=== PATIENT | male | born 1935 | race Caucasian/White ===

== ENCOUNTER → 2017-07-10 | Outpatient (CLI) | payer MEDICARE | END | disposition home or self-care (01) | LOC: CARD 12:46 | DX: I42.9 Cardiomyopathy, unspecified (principal); Z79.899 Other long term (current) drug therapy ==

== ENCOUNTER → 2019-10-24 | Outpatient (CLI) | payer OTHER | END | disposition home or self-care (01) | LOC: CT 10:20 | DX: K57.90 Diverticulosis of intestine, part unspecified, without perforation or abscess without bleeding (principal) ==

== ENCOUNTER 2021-10-20 16:28 | Inpatient (IN) | payer OTHER ==
[~2021-10-20] VITALS: Ht 190.5 cm; Wt 75.9 kg
[2021-10-20 16:34] VITALS: BP 139/70
[2021-10-20 18:42] VITALS: BP 126/69
[2021-10-20 19:56] LABS: BASO % 0.2 % (0.0-1.0); EOS # 0.1 10*3/uL (0.0-0.4); EOS % 0.7 % (1.0-4.0); HEMATOCRIT 40.7 % (42.0-52.0); LYMPH # 1.3 10*3/uL (1.3-4.4); LYMPH % 15.4 % (27.0-41.0); MEAN CELL VOLUME 98.5 fl (80.0-94.0); MEAN CORPUSCULAR HGB 33.4 pg (27.0-31.0); MEAN CORPUSCULAR HGB CONC 33.9 g/dl (33.0-37.0); MEAN PLATELET VOLUME 8.1 fl (9.6-12.3); MONO # 0.6 10*3/uL (0.1-1.0); MONO % 6.8 % (3.0-9.0); NEUT # 6.6 10*3/uL (2.3-7.9); NEUT % 76.7 % (47.0-73.0); PLATELET COUNT AUTOMATED 117 10*3/uL (130-400); RED BLOOD COUNT 4.13 10*6/uL (4.50-5.90); RED CELL DISTRI WIDTH 13.6 % (0-14.5); WHITE BLOOD COUNT 8.6 10*3/uL (4.8-10.8)
[2021-10-20 20:07] LABS: ACT PARTIAL THROMBO TIME 40.6 SECONDS (20.0-32.1); INTERNATIONAL NORM RATIO 2.3 (2.0-3.5)
[2021-10-20 20:10] LABS: ALBUMIN 3.9 gm/dl (3.1-4.5); CREATININE 1.8 mg/dL (0.70-1.30); POTASSIUM 4.1 mmol/L (3.5-5.1); TOTAL PROTEIN 7.8 gm/dL (6.4-8.2)
[2021-10-20 20:23] VITALS: BP 131/60
[2021-10-20] MEDS ORDERED: MIRTAZAPINE7.5 MG PO (21:36)
[2021-10-20] MEDS ORDERED: FUROSEMIDE40 MG PO (21:38)
[2021-10-20] MEDS ORDERED: METOPROLOL SUCC25 M2 PO (21:38)
[2021-10-20] MEDS ORDERED: WARFARIN SOD2 MG PO (21:39)
[2021-10-20] MEDS ORDERED: ALLOPURINOL100 MG PO (21:39)
[2021-10-20] MEDS ORDERED: AMLODIPINE BES2.5 MG PO (21:39)
[2021-10-20] MEDS ORDERED: OMEPRAZOLE MAGN20 MG PO (21:40)
[2021-10-20] MEDS ORDERED: ESCITALOPRAM OX20 MG PO (21:40)
[2021-10-20] MEDS ORDERED: ADULT ASPIRIN R81 MG PO (21:42)
[2021-10-20 23:25] VITALS: BP 114/47
[2021-10-21] VITALS: BP 105/51
[2021-10-21] MEDS ORDERED: ZINC50 M4 PO (00:40)
[2021-10-21] MEDS ORDERED: PRALUENT P150 MG/1 M SQ (00:41)
[2021-10-21] MEDS ORDERED: VITAMIN B121000 MC1 PO (01:04)
[2021-10-21] MEDS ORDERED: XALATAN 0.005%2.5 ML INTRAOC (01:06)
[2021-10-21 08:00] VITALS: BP 134/65
[2021-10-21 08:15] LABS: BASO % 0.3 % (0.0-1.0); EOS # 0.1 10*3/uL (0.0-0.4); EOS % 1.7 % (1.0-4.0); HEMATOCRIT 37.8 % (42.0-52.0); LYMPH # 1.1 10*3/uL (1.3-4.4); LYMPH % 15.1 % (27.0-41.0); MEAN CELL VOLUME 97.7 fl (80.0-94.0); MEAN CORPUSCULAR HGB 33.9 pg (27.0-31.0); MEAN CORPUSCULAR HGB CONC 34.7 g/dl (33.0-37.0); MEAN PLATELET VOLUME 8.6 fl (9.6-12.3); MONO # 0.6 10*3/uL (0.1-1.0); NEUT # 5.2 10*3/uL (2.3-7.9); NEUT % 73.6 % (47.0-73.0); PLATELET COUNT AUTOMATED 110 10*3/uL (130-400); RED BLOOD COUNT 3.87 10*6/uL (4.50-5.90); RED CELL DISTRI WIDTH 13.6 % (0-14.5)
[2021-10-21 08:29] LABS: ALBUMIN 3.5 gm/dl (3.1-4.5); CREATININE 1.64 mg/dL (0.70-1.30)
[2021-10-21 08:31] LABS: TOTAL PROTEIN 7.2 gm/dL (6.4-8.2)
[2021-10-21 12:00] VITALS: BP 117/53
[2021-10-21 16:00] VITALS: BP 125/57
[2021-10-21 20:30] VITALS: BP 127/73
[2021-10-22] VITALS: BP 132/57
[2021-10-22 06:55] LABS: HEMATOCRIT 39.7 % (42.0-52.0); MEAN CELL VOLUME 95.2 fl (80.0-94.0); MEAN CORPUSCULAR HGB 33.8 pg (27.0-31.0); MEAN CORPUSCULAR HGB CONC 35.5 g/dl (33.0-37.0); MEAN PLATELET VOLUME 8.6 fl (9.6-12.3); PLATELET COUNT AUTOMATED 132 10*3/uL (130-400); RED BLOOD COUNT 4.17 10*6/uL (4.50-5.90); RED CELL DISTRI WIDTH 13.2 % (0-14.5); WHITE BLOOD COUNT 7.5 10*3/uL (4.8-10.8)
[2021-10-22 07:17] LABS: ALBUMIN 3.7 gm/dl (3.1-4.5); CREATININE 1.68 mg/dL (0.70-1.30); POTASSIUM 4.1 mmol/L (3.5-5.1); TOTAL PROTEIN 7.7 gm/dL (6.4-8.2)
[2021-10-22 07:29] LABS: ATYPICAL LYMPHS 1 % (0-0); PLATELET SUFFICIENCY NORMAL (NORMAL); POLYCHROMASIA SLIGHT; ROULEAUX SLIGHT; TOTAL CELLS COUNTED 100 #CELLS
[2021-10-22 08:00] VITALS: BP 138/66
[2021-10-22 12:00] VITALS: BP 136/60
[2021-10-22 16:00] VITALS: BP 136/62
[2021-10-22 20:00] VITALS: BP 124/58
[2021-10-23] VITALS: BP 110/57
[2021-10-23 06:42] LABS: BASO % 0.1 % (0.0-1.0); EOS % 0.1 % (1.0-4.0); HEMATOCRIT 35.8 % (42.0-52.0); LYMPH # 0.8 10*3/uL (1.3-4.4); LYMPH % 7.7 % (27.0-41.0); MEAN CELL VOLUME 98.1 fl (80.0-94.0); MEAN CORPUSCULAR HGB 34.2 pg (27.0-31.0); MEAN CORPUSCULAR HGB CONC 34.9 g/dl (33.0-37.0); MEAN PLATELET VOLUME 8.9 fl (9.6-12.3); MONO # 0.6 10*3/uL (0.1-1.0); MONO % 5.7 % (3.0-9.0); NEUT # 8.9 10*3/uL (2.3-7.9); PLATELET COUNT AUTOMATED 117 10*3/uL (130-400); RED BLOOD COUNT 3.65 10*6/uL (4.50-5.90); RED CELL DISTRI WIDTH 13.4 % (0-14.5); WHITE BLOOD COUNT 10.4 10*3/uL (4.8-10.8)
[2021-10-23 06:43] LABS: ALBUMIN 3.3 gm/dl (3.1-4.5); CREATININE 1.51 mg/dL (0.70-1.30); POTASSIUM 3.9 mmol/L (3.5-5.1); TOTAL PROTEIN 6.8 gm/dL (6.4-8.2)
[2021-10-23 08:00] VITALS: BP 134/68
[2021-10-23 12:00] VITALS: BP 125/60
== END 2021-10-23 14:59 | disposition home or self-care (01) | DRG 64 ==
LOC: ED 16:28 → 4E 18:36 → EDHOLD 18:36 → 4E 21:27
PROVIDERS: Internal Medicine; ADMIT Internal Medicine; ATTEND Internal Medicine
DX: I63.9 Cerebral infarction, unspecified (principal); N17.0 Acute kidney failure with tubular necrosis; E87.1 Hypo-osmolality and hyponatremia; I65.29 Occlusion and stenosis of unspecified carotid artery; D53.9 Nutritional anemia, unspecified; D69.6 Thrombocytopenia, unspecified; I48.91 Unspecified atrial fibrillation; I10 Essential (primary) hypertension; E78.2 Mixed hyperlipidemia; M1A.9XX0 Chronic gout, unspecified, without tophus (tophi); E83.41 Hypermagnesemia; Z79.01 Long term (current) use of anticoagulants; Z95.0 Presence of cardiac pacemaker; Z91.041 Radiographic dye allergy status; Z88.8 Allergy status to other drugs, medicaments and biological substances; Z79.82 Long term (current) use of aspirin; Z79.899 Other long term (current) drug therapy